=== PATIENT | female | born 1960 | race Caucasian/White ===

== ENCOUNTER → 2017-01-23 | Outpatient (CLI) | payer BC, OTHER ==
[~2017-01-23] MED LIST: /FEXO18TA OR; FLEXERIL PO; LEVO150T OR; NAPR500T OR; PAXI20TA OR; ULTRTA PO
--- NOTE | 2017-01-23 20:05 | REPMRS ---
Patient History The patient states she had a clinical breast exam in Patient is postmenopausal and has history of skin cancer at age 32. No known family history of cancer. Digital Woman Screen Mammo: January 23, 2017 - Exam #: [id number] Bilateral CC and MLO view(s) were taken. Technologist: Shaunna Dutton, Technologist Prior study comparison: July 17, 2015, digital woman screen mammo performed at [facility]. July 14, 2014, digital woman screen mammo performed at [facility]. FINDINGS: There are scattered fibroglandular densities. There has been no change in the appearance of the mammogram from the prior studies. There is a mild amount of residual fibroglandular tissue which is fairly symmetric. There is no interval development of dominant mass, architectural distortion, or clustered microcalcification suggestive of malignancy. Scattered lymph nodes are seen in the axillae. Large coarse benign appearing calcification again present in the left breast. No significant changes when compared with prior studies. ASSESSMENT: BI-RADS/ACR category 2 mammogram. Benign finding(s). Recommendation Routine screening mammogram in 1 year (for women over age 40). This mammogram was interpreted with the aid of an FDA-approved computer-aided dectection system. A. Negative x-ray reports should not delay biopsy if a dominant or clinically suspicious mass is present. B. Four to eight percent of cancers are not identified by mammography. C. Adenosis and dense breast may obscure an underlying neoplasm. Electronically Signed By: Everton Burton MD 01/23/172004
== END ==
LOC: M WHC 13:09
PROVIDERS: ATTEND Family Medicine
DX: Z12.31 Encounter for screening mammogram for malignant neoplasm of breast (principal); R92.8 Other abnormal and inconclusive findings on diagnostic imaging of breast

== ENCOUNTER → 2017-08-10 | Outpatient (REF) | payer OTHER ==
[2017-08-10 19:21] LABS: APPEARANCE, URINE CLEAR (CLEAR); BACTERIA, URINE AUTO 2+ (NEGATIVE); BILIRUBIN, URINE AUTO NEGATIVE (NEGATIVE); BLOOD, URINE BLOOD NEGATIVE (NEGATIVE); COLOR, URINE STRAW (YELLOW); GLUCOSE, URINE (UA) AUTO NEGATIVE (NEGATIVE); KETONE, URINE AUTO NEGATIVE (NEGATIVE); LEUKOCYTE ESTERASE, URINE AUTO TRACE (NEGATIVE); NITRITE, URINE AUTO NEGATIVE (NEGATIVE); PROTEIN, URINE AUTO NEGATIVE (NEGATIVE); RBC, URINE AUTO 0 /HPF (0-3); SPECIFIC GRAVITY URINE AUTO 1.004 (1.002-1.035); SQUAMOUS EPITHELIAL CELL UR AU 1 /HPF (0-6); UROBILINOGEN, URINE AUTO 0.2 mg/dL (0.0-2.0); WBC, URINE AUTO 7 /HPF (0-3)
== END ==
LOC: M LAB REF 17:06
DX: Z01.411 Encounter for gynecological examination (general) (routine) with abnormal findings (principal)

== ENCOUNTER → 2021-04-27 | Outpatient (CLI) | payer BC, OTHER ==
[~2021-04-27] MED LIST changes: +CETI5TAB2 PO; +LEVO-97 PO; +PARO20TA3 PO
== END ==
LOC: M LABSMTC 10:43
PROVIDERS: ATTEND Anesthesiology
DX: Z01.812 Encounter for preprocedural laboratory examination (principal); Z20.822 Contact with and (suspected) exposure to COVID-19

== ENCOUNTER 2021-05-02 09:18 | Day surgery (SDC) | payer BC, OTHER ==
[~2021-05-02] VITALS: Ht 167.6 cm; Wt 83.9 kg
[~2021-05-02 09:18] MED LIST changes: +LIDOCAINE 1% MDV 20ML VIAL SQ PRN; +ceFAZolin SOD 2 GM in IV 1 EA IV ONE
[2021-05-02] MEDS ORDERED: propofoL 200 MG/20 ML VIAL As Ordered ONE (09:58)
[2021-05-02] MEDS ORDERED: LIDOCAINE 2% 100MG/5ML SDV (FOR ANES.) As Ordered ONE (09:58)
[2021-05-02] MEDS ORDERED: fentaNYL 100 MCG/2 ML INJECTION (J3010) As Ordered ONE (09:59)
[2021-05-02] MEDS ORDERED: MIDAZOLAM INJ 2MG/2ML VIAL (J2250 PER 1MG) As Ordered ONE (09:59)
[2021-05-02] MEDS ORDERED: LR 1,000 ML IV ONE (10:30)
[2021-05-02] MEDS ORDERED: VASOPRESSIN INJ 20 UNITS/ML VIAL As Ordered ONE (10:43)
[2021-05-02] MEDS ORDERED: SCOPOLAMINE 1MG TRANSDERMAL PATCH TOP ONE (10:50)
[2021-05-02] MEDS ORDERED: dexameTHASONE 4 MG/ML 1ML VIAL (J1100 PER 1MG) As Ordered ONE (11:05)
[2021-05-02] MEDS ORDERED: PHENYLephrine 500MCG 5ML (100MCG/ML) SYRINGE As Ordered ONE (11:05)
[2021-05-02] MEDS ORDERED: ePHEDrine SULFATE 25 MG/5 ML(5MG/ML) SYRINGE As Ordered ONE (11:07)
[2021-05-02] MEDS ORDERED: METOCLOPRAMIDE INJ 10MG/2ML VIAL (J2765 PER 1) As Ordered ONE (11:13)
[2021-05-02] MEDS ORDERED: ONDANSETRON 4MG/2ML VIAL As Ordered ONE (11:15)
[2021-05-02] MEDS ORDERED: CHLOROPROCAINE PRES. FREE 2% 20ML VIAL As Ordered ONE (11:42)
[2021-05-02] MEDS ORDERED: ONDANSETRON 4MG/2ML VIAL IV PRN (12:35)
[2021-05-02] MEDS ORDERED: LR 1,000 ML IV SCH ×2 (12:35)
[2021-05-02] MEDS ORDERED: HYDROMORPHONE HCL 0.5 MG/ 0.5 ML SYRINGE (J1170 PER 1) IV PRN (12:35)
[2021-05-02] MEDS ORDERED: fentaNYL 100 MCG/2 ML INJECTION (J3010) IV PRN (12:35)
[2021-05-02] MEDS ORDERED: oxyCODONE 5MG TAB PO PRN (12:35)
[2021-05-02 14:30] VITALS: BP 131/81
--- NOTE | 2021-05-02 16:59 | RO ---
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 PROCEDURE: Mid urethral sling Desara and cystourethroscopy. SURGEON: Joleen Strong MD ANESTHESIA: Spinal and sedation. BRIEF DESCRIPTION OF PROCEDURE AND FINDINGS: Jeri was brought to the operating room where sufficient spinal anesthesia was induced. She was prepped, draped, and positioned in the usual sterile fashion. The bladder was emptied and then the anterior aspect of the vaginal wall was evaluated. The anatomical landmarks were marked off and vasopressant injected anteriorly. A 1.5 cm anterior incision was made with path dissected out laterally for the trocar, which were then placed first left and then right, as is my typical. In between the placement of each trocar, cystourethroscopy was performed with a normal bladder internal exam found and no evidence of perforation of bladder on either side. We then brought up the mid urethral sling around the red rubber and the #8 Hegar. We were sure to make it snug around these since the patient also has the intrinsic sphincteric deficiency. Having done that, we went ahead and removed the sheathing and trimmed the mesh at the suprapubic exit wounds, and then closed those using 3-0 Vicryl and closed the vaginal wound with 2-0 Vicryl. I did put a vaginal pack. We had a little oozing on the initial dissection on the patient's right side, so we placed a pack which will be removed before she is discharged to home. The procedure was ended. ESTIMATED BLOOD LOSS: 15 mL. FLUID REPLACEMENT: Crystalloid. COMPLICATIONS: None. CONDITION AND DISPOSITION: Jeri tolerated the procedure well and was recovering in the recovery room in good condition.
== END 2021-05-02 15:20 | disposition home or self-care (01) ==
LOC: M SDC 09:18
PROVIDERS: ATTEND Obstetrics & Gynecology
DX: R32 Unspecified urinary incontinence (principal); N36.41 Hypermobility of urethra; F32.9 Major depressive disorder, single episode, unspecified; E03.9 Hypothyroidism, unspecified; Z79.899 Other long term (current) drug therapy; Z87.891 Personal history of nicotine dependence; Z88.1 Allergy status to other antibiotic agents
CPT/HCPCS: 57288; C1771; J0690; J1100; J2250; J2370; J2400; J2405; J2765; J3010

== ENCOUNTER → 2021-09-17 | Outpatient (CLI) | payer BC, OTHER ==
[~2021-09-17] MED LIST changes: -LIDOCAINE 1% MDV 20ML VIAL SQ PRN; -ceFAZolin SOD 2 GM in IV 1 EA IV ONE
== END ==
LOC: M RAD 08:55
PROVIDERS: ATTEND Nurse Practitioner Family
DX: Z12.2 Encounter for screening for malignant neoplasm of respiratory organs (principal); Z87.891 Personal history of nicotine dependence

== ENCOUNTER → 2022-06-06 | Outpatient (REF) | payer BC, OTHER | LOC: M SFHCDERM 14:51 | PROVIDERS: ATTEND Dermatology | DX: D48.5 Neoplasm of uncertain behavior of skin (principal) ==

== ENCOUNTER → 2022-10-14 | Outpatient (CLI) | payer BC, OTHER | LOC: M RAD 16:26 | PROVIDERS: ATTEND Nurse Practitioner Family | DX: Z87.891 Personal history of nicotine dependence (principal); K44.9 Diaphragmatic hernia without obstruction or gangrene ==

== ENCOUNTER → 2023-02-27 | Outpatient (CLI) | payer BC, OTHER | LOC: M WHC 12:15 | PROVIDERS: ATTEND Nurse Practitioner Family | DX: Z12.31 Encounter for screening mammogram for malignant neoplasm of breast (principal) ==

== ENCOUNTER → 2023-10-19 | Outpatient (CLI) | payer BC, OTHER | LOC: M RAD 13:20 | PROVIDERS: ATTEND Nurse Practitioner Family | DX: Z12.2 Encounter for screening for malignant neoplasm of respiratory organs (principal); F17.210 Nicotine dependence, cigarettes, uncomplicated; K44.9 Diaphragmatic hernia without obstruction or gangrene ==

== ENCOUNTER → 2024-03-22 | Outpatient (REF) | payer BC ==
[2024-03-24 15:18] LABS: HPV APTIMA Not Detected (Not Detected)
== END ==
LOC: M LAB REF 18:00
PROVIDERS: ATTEND Nurse Practitioner Family
DX: Z12.4 Encounter for screening for malignant neoplasm of cervix (principal); R87.610 Atypical squamous cells of undetermined significance on cytologic smear of cervix (ASC-US)
CPT/HCPCS: 87624; G0123

== ENCOUNTER → 2024-03-29 | Outpatient (CLI) | payer BC, OTHER | LOC: M CARPUL 08:05 | PROVIDERS: ATTEND Nurse Practitioner Family | DX: R06.02 Shortness of breath (principal) ==

== ENCOUNTER 2024-05-03 08:29 | Day surgery (SDC) | payer BC, OTHER ==
[~2024-05-03] VITALS: Ht 167.6 cm; Wt 89.5 kg
[~2024-05-03 08:29] MED LIST changes: +LEVOTAB10 PO; +NS 250 ML IV ONE; +SYNT137T7 PO
[2024-05-03] MEDS ORDERED: LIDOCAINE 2% 100MG/5ML SDV (FOR ANES.) As Ordered ONE (09:08)
[2024-05-03] MEDS ORDERED: dexmedeTOMIDine (4MCG/ML)200MCG/50ML BTL (PRECEDEX) As Ordered ONE (09:08)
[2024-05-03] MEDS ORDERED: propofoL 500 MG/50 ML VIAL As Ordered ONE (09:08)
[2024-05-03 09:55] VITALS: BP 99/61; TEMP 96.8; O2SAT 96
== END 2024-05-03 10:03 | disposition home or self-care (01) ==
LOC: M OPP 08:29
PROVIDERS: ATTEND Surgery
DX: Z12.11 Encounter for screening for malignant neoplasm of colon (principal); Z80.0 Family history of malignant neoplasm of digestive organs; K64.8 Other hemorrhoids; K44.9 Diaphragmatic hernia without obstruction or gangrene; K29.80 Duodenitis without bleeding; Z13.810 Encounter for screening for upper gastrointestinal disorder; E03.9 Hypothyroidism, unspecified; Z85.828 Personal history of other malignant neoplasm of skin; Z87.891 Personal history of nicotine dependence; Z88.1 Allergy status to other antibiotic agents; Z91.048 Other nonmedicinal substance allergy status; Z79.890 Hormone replacement therapy; Z79.899 Other long term (current) drug therapy

== ENCOUNTER → 2025-02-13 | Outpatient (CLI) | payer BC, OTHER ==
[~2025-02-13] MED LIST changes: -NS 250 ML IV ONE
== END ==
LOC: M PLAIMG 15:40
PROVIDERS: ATTEND Nurse Practitioner Family
DX: S22.41XA Multiple fractures of ribs, right side, initial encounter for closed fracture (principal); Y93.9 Activity, unspecified; Y92.9 Unspecified place or not applicable

== ENCOUNTER → 2025-03-08 | Outpatient (CLI) | payer BC, OTHER | LOC: M RAD 15:38 | PROVIDERS: ATTEND Nurse Practitioner Family | DX: Z87.891 Personal history of nicotine dependence (principal) ==